=== PATIENT | male | born 1990 | race African-American/Black ===

== ENCOUNTER 2017-04-13 20:10 | Emergency (ER) | payer OTHER, SELFPAY ==
[2017-04-13] MEDS ORDERED: Ketorolac Tromethamine 60 MG/2 ML VIAL ONE (20:36)
[2017-04-13] MEDS ORDERED: cefTRIAXone\\ROCEPHIN 500 MG VIAL ONE (20:59)
--- NOTE | 2017-04-13 21:22 | RAD ---
TWO VIEW CHEST: Indication: Cough, sore throat. FINDINGS: There is subtle patchy density at the left lung base. Cardiac silhouette is within normal limits of s ize. No vascular congestion or effusion. IMPRESSION: Subtle patchy left basilar opacity. This could be on the basis of mild volume loss. POS: [facility]
== END 2017-04-13 21:50 | disposition home or self-care (01) ==
LOC: ERS 20:10
DX: J18.9 Pneumonia, unspecified organism (principal); F17.210 Nicotine dependence, cigarettes, uncomplicated
CPT/HCPCS: 71046; 87081; 87430; 87804; 96372; J0696; J1885

== ENCOUNTER 2019-04-30 21:09 | Emergency (ER) | payer SELFPAY ==
[2019-04-30 21:40] LABS: #Basophils 0.1 thou/uL (0.0-0.2); #Eosinphils 0.2 thou/uL (0.0-0.7); #Monocytes 0.7 thou/uL (0.11-0.59); #Neutrophils 4.1 thou/uL (1.40-6.50); %Basophils 1.3 % (0.0-1.0); %Eosinophils 2.9 % (0.0-10.0); %Lymphocytes 37.5 % (21.0-51.0); %Monocytes 8.2 % (0.0-10.0); %Neutrophils 50.1 % (42.0-75.0); Hemoglobin 15.1 g/dL (14.0-18.0); Mean Corpuscular HGB CONC 32.7 g/dL (32.0-36.0); Mean Corpuscular Hemoglobin 28.7 pg (27.0-31.0); Mean Corpuscular Volume 87.8 fL (78.0-98.0); Mean Platelet Volume 7.6 fL (7.4-10.4); Platelet Count 356 thou/uL (130-400); RBC Distribution Width 13.1 % (11.5-14.5); Red Blood Cell (RBC) Count 5.25 mill/uL (4.70-6.10); White Blood Cell (WBC) Count 8.1 thou/uL (4.8-10.8)
--- NOTE | 2019-04-30 21:49 | RAD ---
Chest AP view INDICATION: Chest pain COMPARISON: April 13, 2017 FINDINGS: Lungs: The lungs are clear Cardiac silhouette: There is moderate cardiomegaly Pulmonary vasculature: There is mild pulmonary vascular congestion Pleural spaces: No pleural effusion or pneumothorax is demonstrated. Upper abdomen: No abnormality seen. Osseous structures: No acute osseous abnormality. Additional findings: None. IMPRESSION: Moderate cardiomegaly with mild pulmonary vascular congestion
[2019-04-30 22:02] LABS: ALT (SGPT) 43 U/L (8-55); AST (SGOT) 31 U/L (5-34); Albumin 4.1 g/dL (3.5-5.0); Alkaline Phosphatase 85 U/L (40-110); Anion Gap 11 mmol/L (10-20); BUN (Urea Nitrogen) 11 mg/dL (8.9-20.6); Bilirubin, Total 0.2 mg/dL (0.2-1.2); CK (CPK) 669 U/L (30-200); Calc. Creatinine Clearance 0 mL/min (70-130); Calcium 9.1 mg/dL (7.8-10.44); Carbon Dioxide 28 mmol/L (22-29); Chloride 104 mmol/L (98-107); Estimated GFR-MDRD Greater than 90; Globulin 3.9 g/dL (2.4-3.5); Glucose 97 mg/dL (70-105); Lipase 8 U/L (8-78); Potassium 3.9 mmol/L (3.5-5.1); Sodium 139 mmol/L (136-145)
[2019-04-30] MEDS ORDERED: Morphine 4 MG/ML VIAL ONE (22:54)
[2019-04-30] MEDS ORDERED: Ketorolac Tromethamine 30 MG/ML VIAL ONE (22:54)
== END 2019-05-01 01:20 | disposition home or self-care (01) ==
LOC: ERS 21:09
DX: R07.9 Chest pain, unspecified (principal); J45.909 Unspecified asthma, uncomplicated; F17.210 Nicotine dependence, cigarettes, uncomplicated
CPT/HCPCS: 71045; 80053; 82550; 83690; 84484; 85025; 93005; 94760; 96374; J1885; J2270

== ENCOUNTER 2019-05-04 01:00 | Emergency (ER) | payer SELFPAY | END 2019-05-04 01:51 | disposition home or self-care (01) | LOC: ERS 01:00 | DX: I10 Essential (primary) hypertension (principal); J45.909 Unspecified asthma, uncomplicated; F17.210 Nicotine dependence, cigarettes, uncomplicated; Z71.6 Tobacco abuse counseling | CPT/HCPCS: 99406 ==

== ENCOUNTER 2019-06-18 13:05 | Emergency (ER) | payer SELFPAY ==
--- NOTE | 2019-06-18 14:42 | RAD ---
LEFT FOOT 3 VIEWS: HISTORY: Pain. COMPARISON: None. FINDINGS: No acute displaced fracture or malalignment. Moderate dorsal calcaneal spur. Normal appearance of the hallux sesamoids. Type II navicular ossicle. IMPRESSION: No acute osseous abnormality. POS: [facility]
== END 2019-06-18 14:50 | disposition home or self-care (01) ==
LOC: ERS 13:05
DX: M79.672 Pain in left foot (principal); J45.909 Unspecified asthma, uncomplicated; F17.210 Nicotine dependence, cigarettes, uncomplicated

== ENCOUNTER 2019-08-03 15:36 | Emergency (ER) | payer SELFPAY ==
--- NOTE | 2019-08-03 16:33 | RAD ---
AP CHEST: 08/03/19 INDICATIONS: Headache, nausea. Lungs appear clear. Heart is mildly prominent but accentuated by this projection. Vascular markings n ormal. IMPRESSION: No acute process. No significant change when compared to prior exam of 04/30/19. POS: [facility]
== END 2019-08-03 16:32 | disposition home or self-care (01) ==
LOC: ERS 15:36
DX: R51 Headache (principal); J45.909 Unspecified asthma, uncomplicated; F17.210 Nicotine dependence, cigarettes, uncomplicated
CPT/HCPCS: 71045; 93005

== ENCOUNTER 2020-03-09 23:24 | Emergency (ER) | payer SELFPAY ==
--- NOTE | 2020-03-09 23:50 | RAD ---
4 views of the right hand: 03/09/2020 COMPARISON: None HISTORY: Right thumb injury, swelling FINDINGS: No fracture or dislocation. No radiopaque foreign body or subcutaneous gas. IMPRESSION: No acute findings.
[2020-03-10] MEDS ORDERED: Ketorolac Tromethamine 30 MG/ML VIAL ONE (00:08)
== END 2020-03-10 00:24 | disposition home or self-care (01) ==
LOC: ERS 23:24
DX: M79.644 Pain in right finger(s) (principal); I10 Essential (primary) hypertension; J45.909 Unspecified asthma, uncomplicated; F17.210 Nicotine dependence, cigarettes, uncomplicated; Y99.0 Civilian activity done for income or pay; W28.XXXA Contact with powered lawn mower, initial encounter
CPT/HCPCS: 96372; J1885

== ENCOUNTER 2021-08-12 23:05 | Emergency (ER) | payer SELFPAY ==
[2021-08-12] MEDS ORDERED: Boostrix 0.5 ML (Tdap) VIAL ONE (23:21)
[2021-08-12] MEDS ORDERED: Bacitracin 1 PK ONE (23:21)
== END 2021-08-12 23:35 | disposition home or self-care (01) ==
LOC: ERS 23:05
DX: S00.81XA Abrasion of other part of head, initial encounter (principal); I10 Essential (primary) hypertension; F17.210 Nicotine dependence, cigarettes, uncomplicated; W22.8XXA Striking against or struck by other objects, initial encounter
CPT/HCPCS: 90471; 90715

== ENCOUNTER 2022-01-10 00:40 | Emergency (ER) | payer SELFPAY | END 2022-01-10 02:34 | disposition home or self-care (01) | LOC: ERS 00:40 | DX: J10.1 Influenza due to other identified influenza virus with other respiratory manifestations (principal); I10 Essential (primary) hypertension; F17.210 Nicotine dependence, cigarettes, uncomplicated | CPT/HCPCS: 71045; 87804 ==

== ENCOUNTER 2024-11-18 05:17 | Emergency (ER) | payer SELFPAY ==
[2024-11-18] MEDS ORDERED: Proparacaine 0.5% Opth 15 ML BOT ONE (05:29)
[2024-11-18] MEDS ORDERED: Fluorescein Opthalmic Strip ONE (05:29)
[2024-11-18] MEDS ORDERED: Erythromycin Base 0.5% Oint 1 GM TUBE ONE (05:42)
== END 2024-11-18 05:55 | disposition home or self-care (01) ==
LOC: ERS 05:17
DX: H57.11 Ocular pain, right eye (principal); I10 Essential (primary) hypertension; F17.210 Nicotine dependence, cigarettes, uncomplicated; F17.290 Nicotine dependence, other tobacco product, uncomplicated
CPT/HCPCS: 99283